=== PATIENT | female | born 1955 | race Caucasian/White ===

== ENCOUNTER 2017-03-15 22:59 | Emergency (ER) | payer BC, OTHER ==
[2017-03-16 03:11] LABS: CALCIUM 9.4 mg/dL (8.5-10.1); CARBON DIOXIDE 27.6 mmol/L (21-32); CHLORIDE SERUM 110 mmol/L (98-107); GFR1 > 60 mL/min; GLUCOSE SERUM 125 mg/dL (74-106); POTASSIUM SERUM 4.6 mmol/L (3.5-5.1); SODIUM SERUM 145 mmol/L (136-145)
[2017-03-16 03:15] LABS: ALBUMIN 3.8 g/dL (3.4-5.0); ALKALINE PHOSPHATASE 74 U/L (46-116); ALT/SGPT 32 U/L (14-59); AST/SGOT 26 U/L (15-37); BILIRUBIN TOTAL 0.26 mg/dL (0.20-1.00); LIPASE 150 IU/L (73-393)
[2017-03-16 03:18] LABS: RED CELL DISTRIBUTION WIDTH 14.1 % (11.5-14.5)
[2017-03-16 03:51] LABS: BASOPHIL % 0.6 % (0-2); PLATELET COUNT 176 x10^3mcL (130-400)
[2017-03-16 03:52] LABS: microscopic required? YES; urine erythrocyte 2+ (NEGATIVE)
[2017-03-16 05:49] VITALS: BP 135/88
== END 2017-03-16 05:49 | disposition home or self-care (01) ==
LOC: ED 22:59
PROVIDERS: Emergency Medicine
DX: N20.9 Urinary calculus, unspecified (principal); Z79.2 Long term (current) use of antibiotics
CPT/HCPCS: 36415; J0500; J1885; Q0162